=== PATIENT | female | born 1990 | race Caucasian/White ===

== ENCOUNTER 2021-06-28 15:29 | Emergency (ER) | payer OTHER ==
[~2021-06-28] VITALS: Ht 177.8 cm; Wt 59.1 kg
[2021-06-28 15:42] VITALS: BP 133/90
--- NOTE | 2021-06-28 15:46 | NUR ---
[facility] notified regarding SART and will sent a statement services representative to be with patient.
[2021-06-28] MEDS ORDERED: LEVONORGESTREL 1.5MG tablet 1.5 MG TABLET PO ONE (17:10)
[2021-06-28] MEDS ORDERED: TINIDAZOLE 500 MG TABLET PO ONE (17:10)
[2021-06-28] MEDS ORDERED: CefTRIAXone 500MG IM Kit w/LIDOcaine (for pt below or = to 150kg) IM ONE (17:10)
[2021-06-28] MEDS ORDERED: azithromycin 250mg tablet PO ONE (17:10)
[2021-06-28] MEDS ORDERED: CefTRIAXone 1000mg IM Kit (w/lidocaine diluent) IM ONE ×2 (17:17→19:25)
[2021-06-28 19:23] LABS: PREOP URINE HCG NEGATIVE (NEGATIVE)
[2021-06-28 19:42] LABS: URINE AMPHETAMINE SCREEN NEGATIVE (Neg); URINE BARBITUATE SCREEN NEGATIVE (Neg); URINE BENZODIAZEPINES SCREEN NEGATIVE (Neg); URINE CANNABINOID SCREEN NEGATIVE (Neg); URINE COCAINE SCREEN NEGATIVE (Neg); URINE METHADONE SCREEN NEGATIVE (Neg); URINE OPIATE SCREEN NEGATIVE (Neg); URINE PHENCYCLIDINE SCREEN NEGATIVE (Neg)
--- NOTE | 2021-06-28 21:40 | NUR ---
Suzy advocate from [facility] at bedside with pt. All meds per Md order given no Rx to follow up. Pt verbalizes understanding of DC instructions and follow up. CASE #[id number], Isaac ordering Kit. SO picked up kit and all contents @ 6013.
== END 2021-06-28 22:08 | disposition home or self-care (01) ==
LOC: ER 15:30 → EEVIPCON 15:30 → ER 22:08
DX: T74.21XA Adult sexual abuse, confirmed, initial encounter (principal); Y07.03 Male partner, perpetrator of maltreatment and neglect
CPT/HCPCS: 80305; 81025; 96372; 99284; J0696